=== PATIENT | female | born 1985 | race African-American/Black ===

== ENCOUNTER 2022-03-21 06:31 | Day surgery (SDC) | payer OTHER ==
[2022-03-19 09:59] VITALS: BMI 33.2
[2022-03-21 07:42] VITALS: RESP 18
[2022-03-21] MEDS ORDERED: LIDOCAINE HCL/PF 2% SDV 5ML VIAL ONE (08:04)
[2022-03-21] MEDS ORDERED: PROPOFOL 120 ML ONE (08:04)
[2022-03-21 09:20] VITALS: TEMP 97.8
[2022-03-21 10:36] VITALS: BP 101/67; PULSE 64
== END 2022-03-21 10:30 | disposition home or self-care (01) ==
LOC: FASU 06:31
PROVIDERS: ATTEND Internal Medicine Gastroenterology
PROC: 0DJD8ZZ Inspection of Lower Intestinal Tract, Via Natural or Artificial Opening Endoscopic (ICD-10-PCS; principal; 2022-03-21 08:53)
DX: Z12.11 Encounter for screening for malignant neoplasm of colon (principal); K64.1 Second degree hemorrhoids
CPT/HCPCS: 84703

== ENCOUNTER 2024-07-07 04:00 | Inpatient (IN) | payer OTHER ==
[2024-07-05 14:30] VITALS: BMI 27.9
[2024-07-07] MEDS: PHENAZOPYRIDINE HCL 100 MG TABLET (FP) PO ONE (06:50)
[2024-07-07] MEDS ORDERED: VASopressin 20 UNITS/ML VIAL IV ONE (07:09)
[2024-07-07] MEDS ORDERED: ROCURONIUM BROMIDE 50 MG/5 ML SYRINGE ONE (07:43)
[2024-07-07] MEDS ORDERED: PROPOFOL 20 ML ONE (07:43)
[2024-07-07] MEDS ORDERED: LIDOCAINE HCL 2% 100 MG/5 ML DISP.SYRIN ONE (07:43)
[2024-07-07] MEDS ORDERED: ceFAZolin SODIUM 1 GM VIAL ONE (07:44)
[2024-07-07] MEDS ORDERED: MIDAZOLAM HCL 2 MG/2 ML SINGLE DOSE VIAL ONE (07:44)
[2024-07-07] MEDS ORDERED: TRANEXAMIC ACID 1000 MG/10 ML VIAL ONE (07:46)
[2024-07-07] MEDS: ceFAZolin 2 GRAM PREMIX BAG IVPB ONE (08:10)
[2024-07-07] MEDS ORDERED: DEXAMETHASONE SOD PHOSPHATE 4 MG/1 ML VIAL ONE (08:14)
[2024-07-07] MEDS ORDERED: ONDANSETRON 4 MG/2 ML VIAL ONE (08:14)
[2024-07-07 08:27] LABS: URINE APPEARANCE CLEAR; URINE BILIRUBIN NEGATIVE (NEGATIVE); URINE COLOR YELLOW; URINE GLUCOSE (UA) NEGATIVE (NEGATIVE); URINE KETONE NEGATIVE (NEGATIVE)
[2024-07-07 08:28] LABS: PH,URINE 5.5 (5.0-8.0)
[2024-07-07 08:29] LABS: EPI CELLS 25 /uL (0-25.1); URINE LEUK ESTERASE NEGATIVE (NEGATIVE); URINE NITRITE NEGATIVE (NEGATIVE); URINE PROTEIN NEGATIVE (NEGATIVE); URINE RBC 6 /uL (0-23.9); URINE UROBILINOGEN 0.2 mg/dL (0.2-1.0); URINE WBC 35 /uL (0-25.8)
[2024-07-07 08:30] LABS: HYALINE CASTS 2 /uL (0-3.1); URINE BACTERIA 2536 /uL (0-1359)
[2024-07-07] MEDS ORDERED: HYDROmorphone HCl 2 MG/ML VIAL ONE (08:37)
[2024-07-07] MEDS ORDERED: KETAMINE HCL 200 MG/20 ML VIAL ONE (10:09)
[2024-07-07] MEDS ORDERED: KETOROLAC TROMETHAMINE 30 MG/1 ML VIAL ONE (10:24)
[2024-07-07] MEDS ORDERED: ACETAMINOPHEN INJECTION 100 ML ONE (10:25)
[2024-07-07] MEDS ORDERED: SUGAMMADEX SODIUM 200 MG/2 ML VIAL ONE (10:33)
[2024-07-07] MEDS ORDERED: ONDANSETRON 4 MG/2 ML VIAL IVPUSH PRN ×2 (11:13→11:35)
[2024-07-07] MEDS ORDERED: SODIUM CHLORIDE 1,000 ML IV SCH (11:15)
[2024-07-07] MEDS ORDERED: BISACODYL 5 MG TABLET.DR (FP) PO PRN (11:35)
[2024-07-07] MEDS ORDERED: DOCUSATE SODIUM 100 MG CAPSULE (FP) PO PRN (11:35)
[2024-07-07] MEDS ORDERED: oxyCODONE HCL 5 MG TABLET PO PRN ×2 (11:35)
[2024-07-07] MEDS ORDERED: ZOLPIDEM TARTRATE 5 MG TABLET PO PRN (11:41)
[2024-07-07] MEDS: CEFAZOLIN SODIUM 2 GM in DEXTROSE 5%-WATER 100 ML IVPB ONE (15:03)
[2024-07-07 16:53] LABS: HEMATOCRIT 37.5 % (32.4-45.2); HEMOGLOBIN 12.3 GM/dL (10.7-15.3); MCH 29.8 pg (25.7-33.7); MCHC 32.8 g/dl (32.0-36.0); MEAN PLT VOLUME 8.2 fl (7.5-11.1); PLATELET COUNT 241 10^3/uL (134-434); RBC 4.12 M/mm3 (3.60-5.2); RDW 14.5 % (11.6-15.6); WHITE BLOOD COUNT 16.4 K/mm3 (4.0-10.0)
[2024-07-07 17:14] LABS: POTASSIUM 4.3 mmol/L (3.5-5.1)
[2024-07-07 17:15] LABS: CALCIUM 8.5 mg/dL (8.5-10.1)
[2024-07-07 17:16] LABS: BLOOD UREA NITROGEN 11.5 mg/dL (7-18)
[2024-07-07 17:19] LABS: CREATININE 0.7 mg/dL (0.55-1.3)
[2024-07-07] MEDS: CEFAZOLIN 1 GM/D5W 1 GM/50 ML BAG IVPB SCH (17:31)
[2024-07-07] MEDS: ACETAMINOPHEN 1000 MG/100 ML BAG IVPB SCH (17:32)
[2024-07-07] MEDS: SIMETHICONE 80 MG TAB.CHEW (FP) PO PRN (17:41)
[2024-07-07] MEDS: IBUPROFEN 800 MG/8 ML IJ IVPB SCH (20:12)
[2024-07-07 20:40] LABS: BASO % 0.1 % (0-2.0); HEMATOCRIT 36.2 % (32.4-45.2); HEMOGLOBIN 12.3 GM/dL (10.7-15.3); LYMPH % 6.4 % (8-40); MCH 30.4 pg (25.7-33.7); MCHC 34.1 g/dl (32.0-36.0); MEAN PLT VOLUME 7.7 fl (7.5-11.1); MONO % 4.8 % (3.8-10.2); NEUT % 88.7 % (42.8-82.8); PLATELET COUNT 262 10^3/uL (134-434); RBC 4.07 M/mm3 (3.60-5.2); RDW 15.1 % (11.6-15.6); WHITE BLOOD COUNT 13.7 K/mm3 (4.0-10.0)
[2024-07-07 20:56] LABS: POTASSIUM 3.9 mmol/L (3.5-5.1)
[2024-07-07 20:58] LABS: CALCIUM 8.7 mg/dL (8.5-10.1)
[2024-07-07 20:59] LABS: ALBUMIN 3.3 g/dl (3.4-5.0); BLOOD UREA NITROGEN 11.9 mg/dL (7-18); MAGNESIUM 1.6 mg/dL (1.8-2.4)
[2024-07-07 21:02] LABS: CREATININE 1.1 mg/dL (0.55-1.3); PHOSPHOROUS 1.6 mg/dL (2.5-4.9)
[2024-07-07 21:03] LABS: BILIRUBIN,TOTAL 1.1 mg/dL (0.2-1); TOT PROT 6.7 g/dl (6.4-8.2)
[2024-07-07 21:56] LABS: EPI CELLS 30 /uL (0-25.1); HYALINE CASTS 3 /uL (0-3.1); URINE APPEARANCE CLEAR; URINE BILIRUBIN NEGATIVE (NEGATIVE); URINE COLOR DK YELLOW; URINE GLUCOSE (UA) NEGATIVE (NEGATIVE); URINE KETONE 2+ (NEGATIVE); URINE LEUK ESTERASE NEGATIVE (NEGATIVE); URINE NITRITE POSITIVE (NEGATIVE); URINE PROTEIN TRACE (NEGATIVE); URINE RBC 143 /uL (0-23.9); URINE WBC 18 /uL (0-25.8)
[2024-07-07 22:23] LABS: URINE BACTERIA 8.5 /uL (0-1359)
[2024-07-07] MEDS: ASPIRIN 81 MG CHEWABLE TABLETS PO ONE (22:30)
[2024-07-07] MEDS: TRANEXAMIC ACID 1000 MG/10 ML VIAL IVPUSH SCH (22:30)
[2024-07-07] MEDS: ATORVASTATIN CA 40 MG TABLET (FP) PO ONE (22:30)
[2024-07-07] MEDS: NAPH,MB-DB/K PH,MBDB POWDER PACKET PO ONE (22:36)
[2024-07-07] MEDS: MAGNESIUM 2GM/50ML STERILE WATER IVPB IVPB ONE (23:09)
[2024-07-08] MEDS ORDERED: oxyCODONE HCL 5 MG TABLET PO PRN ×2 (03:11)
[2024-07-08] MEDS ORDERED: BISACODYL 5 MG TABLET.DR (FP) PO PRN (03:11)
[2024-07-08] MEDS ORDERED: ONDANSETRON 4 MG/2 ML VIAL IVPUSH PRN (03:11)
[2024-07-08] MEDS ORDERED: ZOLPIDEM TARTRATE 5 MG TABLET PO PRN (03:11)
[2024-07-08] MEDS ORDERED: IBUPROFEN 800 MG/8 ML IJ IVPB SCH (04:00)
[2024-07-08] MEDS: ACETAMINOPHEN 1000 MG/100 ML BAG IVPB SCH (05:49)
[2024-07-08 07:20] LABS: HEMATOCRIT 31.3 % (32.4-45.2); HEMOGLOBIN 10.7 GM/dL (10.7-15.3); MCH 30.3 pg (25.7-33.7); MCHC 34.1 g/dl (32.0-36.0); MEAN CELL VOLUME 88.8 fl (80-96); MEAN PLT VOLUME 7.8 fl (7.5-11.1); PLATELET COUNT 208 10^3/uL (134-434); RBC 3.52 M/mm3 (3.60-5.2); RDW 15.1 % (11.6-15.6); WHITE BLOOD COUNT 9.8 K/mm3 (4.0-10.0)
[2024-07-08] MEDS: SIMETHICONE 80 MG TAB.CHEW (FP) PO PRN (08:47)
[2024-07-08] MEDS ORDERED: ENOXAPARIN NA (PORCINE) 40 MG/0.4 ML DISP.SYRIN SQ SCH (10:00)
[2024-07-08] MEDS ORDERED: IBUPROFEN 600 MG TABLET (FP) PO SCH (10:00)
[2024-07-08] MEDS: IBUPROFEN 600 MG TABLET (FP) PO SCH (10:03)
[2024-07-08] MEDS: ENOXAPARIN NA (PORCINE) 40 MG/0.4 ML DISP.SYRIN SQ SCH (10:03)
[2024-07-08] MEDS: CEFAZOLIN 1 GM/D5W 1 GM/50 ML BAG IVPB SCH (10:03)
[2024-07-08] MEDS ORDERED: ACETAMINOPHEN 500 MG TABLET (FP) PO SCH (12:00)
[2024-07-08] MEDS: ACETAMINOPHEN 500 MG TABLET (FP) PO SCH (14:16)
[2024-07-08] MEDS: DOCUSATE SODIUM 100 MG CAPSULE (FP) PO PRN (17:42)
[2024-07-08] MEDS: TRANEXAMIC ACID 1000 MG/10 ML VIAL IVPUSH SCH (18:46)
[2024-07-09 07:08] LABS: HEMATOCRIT 28.5 % (32.4-45.2); HEMOGLOBIN 9.8 GM/dL (10.7-15.3); MCH 30.5 pg (25.7-33.7); MCHC 34.3 g/dl (32.0-36.0); MEAN CELL VOLUME 88.9 fl (80-96); MEAN PLT VOLUME 7.4 fl (7.5-11.1); PLATELET COUNT 197 10^3/uL (134-434); RDW 14.9 % (11.6-15.6); WHITE BLOOD COUNT 7.3 K/mm3 (4.0-10.0)
[2024-07-09 14:04] VITALS: BP 114/76; PULSE 84; RESP 17; TEMP 98.8
== END 2024-07-09 16:12 | disposition home or self-care (01) | DRG 519 ==
LOC: J2C 04:00 → EDSTATUS 07:30 → J3W 14:31 → J4S 23:57
PROVIDERS: ADMIT Obstetrics & Gynecology; ATTEND Obstetrics & Gynecology
PROC: 0UB90ZZ Excision of Uterus, Open Approach (ICD-10-PCS; principal; 2024-07-07 07:30)
DX: D25.9 Leiomyoma of uterus, unspecified (principal); R47.01 Aphasia; F32.A Depression, unspecified; F41.9 Anxiety disorder, unspecified; R20.0 Anesthesia of skin; R20.2 Paresthesia of skin; D25.2 Subserosal leiomyoma of uterus; D25.1 Intramural leiomyoma of uterus; D25.0 Submucous leiomyoma of uterus
CPT/HCPCS: 36415; 36430; 70450-TC; 70551-TC; 71045-TC-FY; 80048; 80053; 81003; 83605; 83735; 84100; 85025; 85027; 86850; 86900; 86901; 86922; 87086; 88305-TC; 94010; 94760; J0131; P9038; P9058